=== PATIENT | male | born 1950 | race Caucasian/White ===

== ENCOUNTER 2024-11-30 07:03 | Day surgery (SDC) | payer MEDICARE, OTHER, SELFPAY ==
[2024-11-30] VITALS (16 sets, daily range): BP systolic 134–142; BP diastolic 75–80; BMI 19.1
[2024-11-30] MEDS: LOW STRENGTH ASPIRIN 81 MG PO (08:29)
[2024-11-30] MEDS: NSS 191 ML IV (08:32)
--- NOTE | 2024-11-30 10:22 | ITS.CL.CATH ---
[employer] - Catheterization
Cardiac Catheterization
Procedure Report:
LEFT HEART CATHETERIZATION
Date of Procedure: November 30, 2024
Procedures performed:
1: Coronary angiography
2: Left ventricular hemodynamic assessment
Primary Care Physician: Dr. Lon Yanes
Primary Director Risk: Dr. Eris Vela
INDICATION: The patient is a 74-year-old man with a past medical history of medical noncompliance for symptomatic coronary disease who presents for cardiac catheterization after stress testing suggesting extensive LAD territory ischemia. He has
started taking aspirin 81 mg daily.
ACCESS: The patient was prepped and draped in usual sterile fashion. A 6 [place] sheath was placed in the right radial artery using the Seldinger over the wire technique.
HEMODYNAMIC FINDINGS (mmHg):
LV(s/d,EDP): 137/10, 18
Ao(s/d,m): 137/72, 98
ANGIOGRAPHIC FINDINGS:
Single-plane Left Ventriculography in [facility] Projection: Not done. Normal LVEF by echo performed on 11/08/2024 with no significant valvular disease.
Coronary Angiography:
Dominance: Left
Left Main: Smooth 40 to 50% distal tapering.
Left Anterior Descending: The LAD is a medium caliber vessel that has heavy proximal and mid calcification throughout. There are multiple sequential 70 to 80% proximal stenoses followed by a mid 80% stenoses. Despite this there is RILEY-3 flow in
the distal LAD which appears to be a good surgical target. There is a high proximal diagonal branch that is small to medium caliber that is widely patent.
Left Circumflex: The left circumflex is a large dominant system that gives rise to 1 major obtuse marginal branch, a large posterior left ventricular branch, and large posterior descending artery. The first obtuse marginal branch has a true ostial
smooth 70 to 80% stenosis. There is a smooth 50% stenosis in the circumflex at the takeoff of OM1. The distal vessels are widely patent with only mild luminal irregularities and normal flow.
Right Coronary: The right coronary artery is very small caliber nondominant vessel that has a smooth 80 to 90% ostial stenosis followed by mid 90% stenosis. Despite this there is normal flow in this small nondominant vessel.
Fluoroscopy Time (min): 1.8
Radiation Dose (mGy): 219
DAP (Gy.cm2): 13
Closure device: None. A TR band was applied for hemostasis at the right wrist.
Complications: None.
ASSESSMENT:
1: Severe obstructive multivessel coronary disease involving a long segment of heavily calcified LAD disease and some degree of distal left main.
2: Mildly elevated filling pressures.
CONCLUSIONS and RECOMMENDATIONS:
1: Medical therapy for diffuse severe coronary artery disease. Start statin and amlodipine in addition to daily aspirin.
2: CT surgical evaluation for CABG. Appointment made with Dr. Cam Amezcua 12/20/2024 at 9:30AM.
Domingo Slade MD
== END 2024-11-30 14:30 | disposition home or self-care (01) ==
LOC: CATH 07:03
PROVIDERS: ATTENDING PHYSICIAN Internal Medicine Cardiovascular Disease; FAMILY PHYSICIAN Family Medicine
DX: I25.10 Atherosclerotic heart disease of native coronary artery without angina pectoris (principal); Z79.82 Long term (current) use of aspirin; Z91.199 Patient's noncompliance with other medical treatment and regimen due to unspecified reason; K21.9 Gastro-esophageal reflux disease without esophagitis
CPT/HCPCS: 93458; C1769; C1894; Q9967